=== PATIENT | male | born 1965 | race African-American/Black ===

== ENCOUNTER 2023-11-04 19:49 | Emergency (ER) | payer OTHER ==
[~2023-11-04] VITALS: Ht 177.8 cm; Wt 68.5 kg
[2023-11-04 19:53] VITALS: O2SAT 100
[2023-11-04] MEDS: SODIUM CHLORIDE 0.9% 1,000 ML IV ONE (20:15)
[2023-11-04 20:37] LABS: BASOPHILS % 0.5 % (0.0-2.0); CHLORIDE 106 mEq/L (98-107); EOSINOPHILS % 0.3 % (0.0-5.0); HEMATOCRIT. 42.4 % (42.0-52.0); MEAN CORPUSCULAR HGB CONC 33.1 g/dL (31.0-37.0); MEAN CORPUSCULAR VOLUME 90.6 fL (80.0-94.0); MEAN PLATELET VOLUME 10.2 fl (7.4-10.4); MONOCYTES % 3.9 % (2.0-8.0); NEUTROPHILS % 74.3 % (40.0-76.0); PLATELET 145 x1000/uL (130-400); POTASSIUM 3.3 mEq/L (3.5-5.1); RED BLOOD CELL COUNT 4.68 mill/uL (4.7-6.1); SODIUM 143 mEq/L (136-145); WHITE BLOOD COUNT 11.8 x1000/uL (4.5-11.0)
[2023-11-04 20:38] LABS: CALCIUM 10.1 mg/dL (8.7-10.4); CARBON DIOXIDE 29 mEq/L (21-32)
[2023-11-04 20:43] LABS: CREATININE 1.5 mg/dL (0.6-1.3); GLUCOSE 107 mg/dL (70-105); UREA NITROGEN BLOOD 12 mg/dL (9-23)
[2023-11-04 20:45] LABS: ALANINE AMINOTRANSFERASE 14 IU/L (10-49); ALBUMIN 5.1 g/dL (3.2-4.8); ASPARTATE AMINOTRANSFERASE 21 IU/L (<34); BILIRUBIN TOTAL 0.5 mg/dL (0.1-1.0)
[2023-11-04 20:47] LABS: PARTIAL THROMBOPLASTIN TIME 22.3 sec (23.4-31.0); PROTHROMBIN TIME 10.9 sec (9.6-11.0)
[2023-11-04] MEDS: ONDANSETRON HCL 4MG/2ML INJ IV STA (22:06)
[2023-11-04] MEDS: MORPHINE SULFATE 4 MG/ML INJ (FOR IV/IM USE) IV STA (22:11)
[2023-11-04] MEDS: POTASSIUM CHLORIDE 20MEQ/PACKET PO ONE (22:15)
[2023-11-04] MEDS: KETOROLAC 15MG/ML VIAL IV ONE (22:16)
[2023-11-04] MEDS ORDERED: HYDR-4001 MT (22:21)
[2023-11-04] MEDS ORDERED: TAMS-11 MT (22:21)
[2023-11-04] MEDS ORDERED: IBUP-2028 MT (22:21)
[2023-11-04 23:06] LABS: CLARITY URINE CLEAR (CLEAR); COLOR URINE YELLOW (YELLOW); GLUCOSE URINE NEGATIVE (NEGATIVE); KETONES URINE NEGATIVE (NEGATIVE); LEUKOCYTE ESTERASE URINE NEGATIVE (NEGATIVE); NITRITE URINE NEGATIVE (NEGATIVE); OCCULT BLOOD URINE TRACE (NEGATIVE); PH URINE >=9.0 (4.5-8.0); PROTEIN URINE TRACE (NEGATIVE); SPECIFIC GRAVITY URINE 1.017 (1.005-1.030); UROBILINOGEN URINE 0.2 E.U./dL (0.2-1.0)
[2023-11-04 23:32] LABS: BACTERIA URINE 1+; RBC URINE 0-2 /hpf (0-2); SQUAMOUS EPITHELIAL CELL URINE RARE /lpf (RARE/1+); WBC URINE 0-2 /hpf (0-2)
[2023-11-04 23:50] VITALS: BP 138/98; PULSE 92; RESP 14; TEMP 36.11400; O2SAT 100
== END 2023-11-04 23:59 | disposition home or self-care (01) ==
LOC: ER 19:49 → EDBEDREQSVC 20:24 → ER 23:59
DX: N23 Unspecified renal colic (principal); N20.0 Calculus of kidney
CPT/HCPCS: 99285; 74176; 96374; 96361; 96375; 71045; 80053; 81003; 83690; 85025; 85610; 85730; 86850; 86900; 86901; 36415; 93005; J1885; J2405; J2270; J7030